=== PATIENT | male | born 1980 | race Caucasian/White ===

== ENCOUNTER 2022-06-21 16:14 | Inpatient (IN) ==
[2022-06-21] MEDS ORDERED: KETOROLAC 60 MG/2 ML VIAL IM STA (17:27)
[2022-06-21] MEDS ORDERED: HYDROmorphone 1 MG/1 ML SYRINGE ONE ×2 (17:40→17:41)
[2022-06-21] MEDS ORDERED: ONDANSETRON 4 MG/2 ML VIAL ONE (17:40)
[2022-06-21] MEDS ORDERED: ONDANSETRON 4 MG/2 ML VIAL IV STA (17:41)
[2022-06-21] MEDS ORDERED: HYDROmorphone 1 MG/1 ML SYRINGE IV STA (17:41)
[2022-06-21] MEDS ORDERED: SODIUM CHLORIDE 0.9% 1,000 ML IV STA (17:41)
[2022-06-21] MEDS ORDERED: MAGNESIUM HYDROXIDE SUSP 30 ML UDCUP PO PRN (18:53)
[2022-06-21 20:30] LABS: Basophils # 0.1 10*3/uL (0.0-0.2); Basophils % 0.7 % (0.0-0.8); Eosinophils # 0.4 10*3/uL (0.0-0.87); Eosinophils % 6.3 % (0.00-10.9); Hematocrit 38.1 VOL% (42.0-52.0); Hemoglobin 12.1 GM/DL (14.0-18.0); Immature Granulocytes % 0.4 %; Immature Granulocytes Absolute 0.03 #; Lymphocytes # 1.1 10*3/uL (1.4-4.0); Lymphocytes % 15.8 % (21.2-54.2); Mean Corpuscular HGB Conc 31.8 GM/DL (32-36); Mean Corpuscular Volume 85.4 FL (87-102); Mean Platelet Volume 9.9 FL (9.6-12.0); Monocytes # 0.4 10*3/uL (0.11-0.8); Monocytes % 5.8 % (1.7-12.7); Platelet Count 159 T/CUMM (130-400); Red Blood Count 4.46 MC/CUMM (3.8-5.5); White Blood Count 6.7 T/CUMM (4-12)
[2022-06-21 20:55] LABS: Alanine Aminotransferase 38 U/L (16-61); Albumin 2.9 G/DL (3.4-5.0); Alkaline Phosphatase 76 U/L (45-117); Aspartate Amino Transferase 32 U/L (0-37); Bilirubin,Total < 0.39 MG/DL (0.20-1.00); Blood Urea Nitrogen 17 MG/DL (7-18); Calcium 8.1 MG/DL (8.5-10.1); Carbon Dioxide 25 MMOL/L (21-32); Chloride 108 MMOL/L (98-107); Glucose 106 MG/DL (74-106); Osmolality,Calculated 280.4 MOS/KG (273-304); Potassium 3.7 MMOL/L (3.5-5.1); Sodium 140 MMOL/L (136-145)
[2022-06-21] MEDS: DEXTROSE 5% NACL 0.45% 1,000 ML IV SCH (21:06)
[2022-06-21] MEDS ORDERED: diphenhydrAMINE 50 MG/1 ML VIAL IV STA (21:07)
[2022-06-21] MEDS ORDERED: INFLUENZA VIRUS VACCINE 0.5 ML SYRINGE IM ONE (23:14)
[2022-06-22] MEDS: DEXTROSE 5% NACL 0.45% 1,000 ML IV SCH (06:18)
[2022-06-22] MEDS ORDERED: ceFAZolin 2,000 MG/50 ML DUPLEX IV ONE (06:35)
[2022-06-22] MEDS ORDERED: HYDROmorphone 1 MG/1 ML SYRINGE IV PRN ×2 (07:18)
[2022-06-22 07:21] LABS: PT Patient Result 10.9 SECS (10.1-12.1); Partial Thromboplastin Time 31.3 SECS (23.7-32.9)
[2022-06-22 07:30] LABS: Calcium 8.4 MG/DL (8.5-10.1); Osmolality,Calculated 276.7 MOS/KG (273-304)
[2022-06-22] MEDS: PANTOPRAZOLE 40 MG TABLET PO SCH (10:28)
[2022-06-22] MEDS: POTASSIUM CHLORIDE RIDER 10 MEQ/100 ML PREMIX IV SCH ×3 (10:30→13:07)
[2022-06-22] MEDS ORDERED: BACITRACIN OINT 0.9 GM PACK TOP ONE (13:06)
[2022-06-22] MEDS ORDERED: LIDOCAINE 2% 5 ML VIAL ONE (13:11)
[2022-06-22] MEDS ORDERED: ROCURONIUM 50 MG/5 ML VIAL IV ONE (13:11)
[2022-06-22] MEDS ORDERED: SEVOFLURANE 1 UNIT/15 MINUTE INH ONE ×2 (13:11→14:58)
[2022-06-22] MEDS ORDERED: propofoL 200 MG/20 ML VIAL IV ONE (13:11)
[2022-06-22] MEDS ORDERED: fentaNYL 100 MCG/2 ML VIAL ONE ×3 (13:11→14:19)
[2022-06-22] MEDS ORDERED: ONDANSETRON 4 MG/2 ML VIAL ONE (13:14)
[2022-06-22] MEDS ORDERED: MIDAZOLAM 2 MG/2 ML VIAL ONE (13:45)
[2022-06-22] MEDS ORDERED: LACTATED RINGERS 1,000 ML IV SCH (14:00)
[2022-06-22] MEDS ORDERED: ZALEPLON 5 MG CAPSULE PO PRN (14:24)
[2022-06-22] MEDS ORDERED: diphenhydrAMINE CAP 25 MG CAPSULE PO PRN (14:24)
[2022-06-22] MEDS ORDERED: GLYCOPYRROLATE 0.4 MG/2 ML VIAL ONE (14:47)
[2022-06-22] MEDS ORDERED: NEOSTIGMINE 10 MG/10 ML VIAL ONE (14:47)
[2022-06-22] MEDS: POTASSIUM CHLORIDE INJ 40 MEQ in LACTATED RINGERS 1,000 ML IV SCH (16:31)
[2022-06-22] MEDS: KETOROLAC 30 MG/1 ML VIAL IV SCH ×2 (16:32→21:11)
[2022-06-22] MEDS: ceFAZolin 2,000 MG/50 ML DUPLEX IV SCH (17:40)
[2022-06-22] MEDS: DIVALPROEX 500 MG TABLET PO SCH (21:07)
[2022-06-22] MEDS: NORTRIPTYLINE 25 MG CAPSULE PO SCH (21:07)
[2022-06-22] MEDS: DOCUSATE SODIUM 100 MG CAPSULE PO SCH (21:07)
[2022-06-22] MEDS: GABAPENTIN 600 MG TABLET PO SCH (21:07)
[2022-06-23] MEDS: POTASSIUM CHLORIDE INJ 40 MEQ in LACTATED RINGERS 1,000 ML IV SCH (01:29)
[2022-06-23] MEDS: ceFAZolin 2,000 MG/50 ML DUPLEX IV SCH (01:33)
[2022-06-23] MEDS: KETOROLAC 30 MG/1 ML VIAL IV SCH ×2 (03:32→09:29)
[2022-06-23 03:50] LABS: Bacteria,Urine Occasional /HPF (Few); Bilirubin,Urine Negative (Negative); Blood, Urine Small mg/dL (Negative); Glucose,Urine (UA) Negative (Negative); Ketones,Urine Negative (Negative); Mucus,Urine Occasional /LPF (Occasional); Nitrite,Urine Negative (Negative); Protein,Urine Negative (Negative); RBC,Urine 7 /HPF (0-4); Urine Appearance Clear (Clear); Urine Color Yellow (Yellow); Urine Specific Gravity 1.025 (1.001-1.035); Urine Urobilinogen 0.2 eU/dL (<2.0)
[2022-06-23 05:50] LABS: Basophils % 0.5 % (0.0-0.8); Eosinophils # 0.1 10*3/uL (0.0-0.87); Hematocrit 37.5 VOL% (42.0-52.0); Hemoglobin 11.9 GM/DL (14.0-18.0); Immature Granulocytes % 0.5 %; Immature Granulocytes Absolute 0.04 #; Lymphocytes # 1.1 10*3/uL (1.4-4.0); Mean Corpuscular HGB Conc 31.7 GM/DL (32-36); Mean Corpuscular Volume 84.5 FL (87-102); Mean Platelet Volume 10.7 FL (9.6-12.0); Monocytes # 0.6 10*3/uL (0.11-0.8); Platelet Count 156 T/CUMM (130-400); Red Blood Count 4.44 MC/CUMM (3.8-5.5); Red Cell Distribution Width 16.1 % (9.3-17.3); White Blood Count 8.8 T/CUMM (4-12)
[2022-06-23 06:12] LABS: Calcium 8.8 MG/DL (8.5-10.1); Osmolality,Calculated 277.7 MOS/KG (273-304); Potassium 4.1 MMOL/L (3.5-5.1)
[2022-06-23] MEDS: PANTOPRAZOLE 40 MG TABLET PO SCH (09:24)
[2022-06-23] MEDS: GABAPENTIN 600 MG TABLET PO SCH ×3 (09:24→21:04)
[2022-06-23] MEDS: DOCUSATE SODIUM 100 MG CAPSULE PO SCH ×2 (09:24→21:04)
[2022-06-23] MEDS: DIVALPROEX 500 MG TABLET PO SCH ×2 (09:24→21:05)
[2022-06-23] MEDS: FLUTICASONE 50 MCG NASAL SPRAY 16 GM BOTTLE BOTH NARES SCH (09:24)
[2022-06-23] MEDS: FONDAPARINUX 2.5 MG/0.5 ML SYRINGE SUBCUT SCH (09:24)
[2022-06-23] MEDS: NORTRIPTYLINE 25 MG CAPSULE PO SCH (21:05)
[2022-06-24 05:52] LABS: Basophils # 0.1 10*3/uL (0.0-0.2); Basophils % 0.9 % (0.0-0.8); Eosinophils # 0.6 10*3/uL (0.0-0.87); Eosinophils % 9.6 % (0.00-10.9); Hematocrit 34.5 VOL% (42.0-52.0); Immature Granulocytes % 0.5 %; Immature Granulocytes Absolute 0.03 #; Lymphocytes # 2.2 10*3/uL (1.4-4.0); Lymphocytes % 33.4 % (21.2-54.2); Mean Corpuscular HGB Conc 31.9 GM/DL (32-36); Mean Corpuscular Volume 85.2 FL (87-102); Mean Platelet Volume 10.9 FL (9.6-12.0); Monocytes # 0.5 10*3/uL (0.11-0.8); Neutrophils % 48.6 % (38.7-73.9); Platelet Count 147 T/CUMM (130-400); Red Blood Count 4.05 MC/CUMM (3.8-5.5); Red Cell Distribution Width 16.7 % (9.3-17.3); White Blood Count 6.6 T/CUMM (4-12)
[2022-06-24 08:22] VITALS: BP 129/70
[2022-06-24] MEDS: DOCUSATE SODIUM 100 MG CAPSULE PO SCH (09:02)
[2022-06-24] MEDS: DIVALPROEX 500 MG TABLET PO SCH (09:02)
[2022-06-24] MEDS: GABAPENTIN 600 MG TABLET PO SCH (09:02)
[2022-06-24] MEDS: PANTOPRAZOLE 40 MG TABLET PO SCH (09:02)
[2022-06-24] MEDS: FLUTICASONE 50 MCG NASAL SPRAY 16 GM BOTTLE BOTH NARES SCH (09:03)
[2022-06-24] MEDS: FONDAPARINUX 2.5 MG/0.5 ML SYRINGE SUBCUT SCH (09:03)
== END 2022-06-24 11:35 | disposition home health service (06) | DRG 308 ==
LOC: EDBD → EDUNIT# → N.ED 16:14 → OBSVTOIN 18:53 → N.EDINP 18:53 → INTOOBSV 18:53 → N.3E 22:25
PROVIDERS: ADMIT Orthopaedic Surgery; ATTEND Orthopaedic Surgery